=== PATIENT | female | born 2000 | race Caucasian/White ===

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

== ENCOUNTER 2019-11-25 07:49 | Emergency (ER) | payer OTHER ==
[~2019-11-25 07:49] MED LIST changes: +AUGMENTIN250 MG/5 M PO
[2019-11-25] MEDS ORDERED: VOLTAREN1%GEL TOP (08:01)
[2019-11-25 08:10] VITALS: BP 138/93
== END 2019-11-25 08:15 | disposition home or self-care (01) | DRG 552 ==
LOC: ED 07:49
DX: M54.5 Low back pain (principal); X50.0XXA Overexertion from strenuous movement or load, initial encounter; Y93.F9 Activity, other caregiving; Y92.239 Unspecified place in hospital as the place of occurrence of the external cause